=== PATIENT | male | born 1955 | race Caucasian/White ===

== ENCOUNTER 2017-01-19 18:08 | Emergency (ER) | payer OTHER ==
--- NOTE | 2017-01-19 19:44 | ED UPPER/LOWER EXTREMITY COMPL ---
History of Present Illness General Chief Complaint: Laceration Procedure Stated Complaint: LAC TO L THUMB +BLOOD THINNERS Source: patient Exam Limitations: no limitations Vital Signs & Intake/Output Vital Signs & Intake/Output Vital Signs Date Time Temp Pulse Resp B/P Pulse O2 O2 Flow FiO2 Ox Delivery Rate 01/19 2130 96.7 68 18 160/82 100 Room Air 01/19 1813 97.7 70 15 164/84 98 Room Air Room Air Allergies Coded Allergies: NO KNOWN ALLERGIES (01/19/17) Reconcile Medications Tylenol With Codeine (Tylenol With Codeine #3 Tablet) 300 MG-30 MG TABLET 1 TAB PO TID PRN PAIN Triage Note: PT TO ED WITH LAC TO LEFT THUMB, BLEEDING CONTROLLED IN TRIAGE, WOUND CLEANED AND BANDAID APPLIED. SMALL SKIN TEAR TO LEFT SECOND DIGIT. +COUMADIN. UNSURE OF LAST TETANUS SHOT. Triage Nurses Notes Reviewed? yes Onset: Abrupt Duration: constant Timing: single episode today Severity: moderate Severity Numbers: 5 Method of Injury: laceration HPI: Patient is a 61-year-old male who presents emergency room stating that 1 hour prior to arrival patient was sharpening a knife and accidentally cut the distal aspect of his left first digit thumb with a knife resulting laceration was bleeding was controlled prior to arrival. Tetanus is unknown. Bleeding was controlled prior to arrival Patient is right arm dominant patient is on Coumadin (ABIEL PINZON) Past History Travel History Traveled to [place] past 21 day No Medical History Any Pertinent Medical History? see below for history Neurological: NONE EENT: NONE Cardiovascular: hypertension, hyperlipidemia Respiratory: pulmonary embolism Gastrointestinal: NONE Hepatic: NONE Renal: NONE Musculoskeletal: gout Psychiatric: NONE Endocrine: TYPE II DM Blood Disorders: NONE Cancer(s): NONE Surgical History Surgical History: non-contributory Psychosocial History What is your primary language Italian Tobacco Use: Never used Family History Hx Contributory? No (ABIEL PINZON) Review of Systems Review of Systems Constitutional: Reports: no symptoms. EENTM: Reports: no symptoms. Respiratory: Reports: no symptoms. Cardiovascular: Reports: no symptoms. Gastrointestinal/Abdominal: Reports: no symptoms. Genitourinary: Reports: no symptoms. Musculoskeletal: Reports: see HPI, joint pain. Skin: Reports: see HPI. Neurological/Psychological: Reports: no symptoms. Hematologic/Endocrine: Reports: see HPI, bleeding. Immunological: Reports: no symptoms. All Other Systems: Reviewed and Negative (ABIEL PINZON) Physical Exam Physical Exam General Appearance: no apparent distress, alert, comfortable Neurologic/Tendon: normal sensation, normal motor functions, normal tendon functions, responds to pain, no evidence tendon injury, no pulse deficit Skin: normal color, warm/dry Comments: Well-developed well-nourished no apparent distress. HEENT: Atraumatic, extraocular motion intact Neck: Supple, no lymphadenopathy Back: Nontender Respiratory: No respiratory distress Extremities: No edema, full range of motion Neuro: Alert and oriented x3 Psych: Mood affect normal, normal memory normal judgment. Diagram Hands Front 1) 1 cm superficial flap laceration no active bleeding is margins revised Full active range of motion full resisted range of motion flexion abduction and extension adduction and no tendon deficit no exposed bone no exposed tendon (ABIEL PINZON) Progress Differential Diagnosis: arterial insufficiency, compartment syndrome, contusion, dislocation, DVT, fracture, gout, septic arthritis, sprain, tendon injury Plan of Care: No tendon deficit noted (ABIEL PINZON) Departure Departure Disposition: HOME OR SELF CARE Condition: Stable Clinical Impression Primary Impression: Laceration of left thumb Referrals: JIMMY KC,NUSRAT Dent (PCP/Family) Additional Instructions: As discussed begin to apply bacitracin to the area once a day for the following 4 days and leave area dry and clean you can and open to improve healing. Begin the prescription Tylenol with Codeine for breakthrough pain relief. If you note signs of infection redness, pain, swelling, discharge return to emergency room. Return to emergency room in 7-9 days for suture removal. Prescriptions waiting at [facility] pharmacy Departure Forms: Customer Survey General Discharge Information Prescriptions: Current Visit Scripts Tylenol With Codeine (Tylenol With Codeine #3 Tablet) 1 TAB PO TID PRN PAIN #5 TAB (ABIEL PINZON) PA/GUEST SERVICES COORDINATOR Co-Sign Statement Statement: ED Attending supervision documentation- [X] I saw and evaluated the patient. I have also reviewed all the pertinent lab results and diagnostic results. I agree with the findings and the plan of care as documented in the PA's/GUEST SERVICES COORDINATOR's documentation. [X] I have reviewed the ED Record and agree with the PA's/GUEST SERVICES COORDINATOR's documentation. [] Additions or exceptions (if any) to the PAs/GUEST SERVICES COORDINATOR's note and plan are summarized below: [] (MAXWELL KCDILLON) Procedures Laceration/Wound Repair Laceration/Wound Repair: Wound Location: upper extremity (LEFT FIRST DIGIT HAND) Wound's Depth, Shape: flap, linear, superficial Wound Length (cm): 1 Wound Explored: clean, no foreign body removed, irrigated extensively Irrigated w/ Saline (ccs): 360 Betadine Prep? Yes Anesthesia: 1% lidocaine Volume Anesthetic (ccs): 5 Wound Repaired With: sutures Suture Size/Type: 4:0 Number of Sutures: 4 Layer Closure? No Progress: Margins were revised with suture placement patient tolerated well. Bacitracin bandage was applied (ABIEL PINZON)
[2017-01-19] MEDS ORDERED: TYLENOL WITH C1 EACH PO (21:21)
[2017-01-19 21:30] VITALS: BP 160/82
== END 2017-01-19 21:32 ==
LOC: ERH 18:08
DX: S61.012A Laceration without foreign body of left thumb without damage to nail, initial encounter (principal); Z79.01 Long term (current) use of anticoagulants; W26.0XXA Contact with knife, initial encounter
CPT/HCPCS: 90471; 90714